=== PATIENT | male | born 1965 | race Caucasian/White ===

== ENCOUNTER 2020-08-09 21:33 | Emergency (ER) | payer SELFPAY ==
[2020-08-09 21:51] VITALS: BP 139/89; PULSE 105; RESP 20; TEMP 36.9; O2SAT 97; BMI 43.4
--- NOTE | 2020-08-09 22:11 | ECG_ITS ---
[facility] Test Date: 2020-08-09 Pat Name: Steve Rodriguez Department: Room: Gender: Male Residential Carpenter: : 1965 Requested By: Stevo Horton Order Number: [id number] Lott MD: Norman Upton M.D. Measurements Intervals [place] Rate: 116 P: MA: QRS: -23 QRSD: 120 T: 56 QT: 345 QTc: 481 Interpretive Statements ATRIAL FIBRILLATION WITH RAPID VENTRICULAR RESPONSE WITH ABERRANT CONDUCTION OR VENTRICULAR PREMATURE COMPLEXES BORDERLINE LEFT AXIS DEVIATION [QRS AXIS < -20] MODERATE INTRAVENTRICULAR CONDUCTION DELAY [110+ ms QRS DURATION] ABNORMAL RHYTHM ECG No previous ECG available for comparison Electronically Signed On 08-11-2020 18:55:09 CDT by Norman Upton M.D. [email or web address]
--- NOTE | 2020-08-09 22:11 | XRR_ITS ---
PROCEDURE INFORMATION: Exam: XR Chest Exam date and time: 08/09/2020 10:14 PM Age: 54 years old Clinical indication: Shortness of breath; Additional info: SOB TECHNIQUE: Imaging protocol: XR of the chest. Views: 1 view. COMPARISON: No relevant prior studies available. FINDINGS: Lungs: Vascular congestion. Mild interstitial opacities in the lung bases. No consolidation. Pleural spaces: Unremarkable. No pleural effusion. No pneumothorax. Heart/Mediastinum: Cardiomegaly. Bones/joints: [place] in the right glenoid. Severe degenerative changes of the right glenohumeral joint. XR/XR chest 1V portable [id number] IMPRESSION: 1. Mild congestive heart failure pattern.
--- NOTE | 2020-08-09 22:16 | ED_ITS ---
HPI - SOB/Dyspnea General: Chief Complaint: Shortness of Breath/Dyspnea Stated Complaint: BLE SWELLING, DIFF BREATHING, WEAK Time Seen by Provider: 08/09/20 22:03 Source: patient Mode of arrival: ambulatory Limitations: no limitations History of Present Illness: HPI Narrative: 54-year-old male states he is here visiting from [place]. He has extensive history including diabetes high blood pressure congestive heart failure and A. fib. He states that his car is broken down has not been able to get back to [place] he is out of all of his medications. He states he has had increasing swelling in his lower extremity along with palpitations from his A. fib. He denies any worsening improving factors. He is tachycardic here. He denies cough or fever. Associated symptoms: Deny abdominal pain, chest pain, fever(s), nausea or vomiting Review of Systems Const: Denies: fever(s), chills, body aches or change in appetite Eyes: Denies: blurry vision or eye discomfort ENMT: Denies: throat pain or dental pain Card: Reports: irregular heart rhythm; Denies: chest pain Resp: Reports: dyspnea GI: Denies: abdominal pain, nausea, vomiting or diarrhea : Denies: dysuria Musc: Denies: neck pain or back pain Skin/Breast: Denies: rash Neuro: Denies: headache(s) Psych: Denies: depression Casey/Lymph: Denies: easy bruising All/Imm: Denies: urticaria Physical Exam Const: COMMON NORMALS: no acute distress and patient oriented x3 NUTRITIONAL APPEARANCE: obese HENMT: COMMON NORMALS: normocephalic and atraumatic HEAD & SCALP: normocep halic and atraumatic Eye: COMMON NORMALS: Equal, round and reactive pupils present and EOMs intact bilaterally PUPIL: Yes Equal, round and reactive pupils present Neck/C-Spine: COMMON NORMALS: full ROM and supple Chest: COMMONS NORMALS: normal inspection of the chest and normal palpation of entire chest wall Resp: COMMON NORMALS: normal respiratory effort, No retractions, No use of accessory muscles and clear to auscultation bilaterally AUSCULTATION: clear to auscultation bilaterally Cardio: COMMON NORMALS: No murmurs present (Cardio) RATE: tachycardic RHYTHM: abnormal rhythm irregularly irregular GI: COMMON NORMALS: Normal to inspection, nondistended, normoactive bowel sounds present, Soft to palpation, non-tender and no masses PALPATION: Yes Soft to palpation Extremity: COMMON NORMALS: full ROM NARRATIVE EXTREMITY EXAM: 2+edema to bilateral ext Neuro: COMMON NORMALS: patient oriented x3, moves all extremities and no focal motor deficits Psych: COMMON NORMALS: mental status grossly normal, Normal thought process present and cooperative THOUGHT PROCESS: Normal thought process present Skin: COMMON NORMALS: no rashes or lesions noted and no wounds GENERAL SKIN EXAM: no rashes or lesions noted Course Vital Signs: Vital signs: Vital Signs Temperature 98.5 F 08/09/20 21:51 Pulse Rate 103 H 08/09/20 23:57 Respiratory Rate 18 08/09/20 23:57 Blood Pressure 135/112 08/09/20 23:57 Pulse Oximetry 94 08/09/20 23:57 MDM - SOB/Dyspnea MDM Narrative: Medical decision making narrative: Patient presents here with lower extremity edema. This is from his CHF and he also has A. fib with RVR. All this is likely due to him being noncompliant on his meds and ran out of his prescription. He I did refill his prescriptions and he has been well-appearing here and his A. fib is improved. He is not require any oxygen here either. He is to follow-up his PCP and return if worsening. He understands agrees to plan. Lab Data: Labs: Lab Results 08/09/20 08/09/20 08/09/20 Range/Units 22:25 22:25 22:25 WBC 8.2 (4.0-10.0) 10^3/ uL RBC 5.11 (4.1-5.3) 10^6/u L Hgb 12.9 (11.7-16.6) g/dL Hct 44.8 (42.0-52.0) % MCV 87.7 (80-94) fL MCH 25.2 L (28.0-34.0) pg MCHC 28.8 L (30.0-36.0) g/dL RDW 18.8 H (12.1-15.1) % Plt Count 215 (130-400) 10^3/c mm MPV 10.1 (7.4-10.4) fL Neut % (Auto) 66.4 % Lymph % (Auto) 19.8 % Edwards % (Auto) 10.5 % Eos % (Auto) 1.7 % Baso % (Auto) 1.1 % Neut # (Auto) 5.42 (1.8-7.7) 10^3/u L Lymph # (Auto) 1.6 (0.8-4.8) 10^3/u L Edwards # (Auto) 0.9 (0.2-0.9) 10^3/u L Eos # (Auto) 0.1 (0.0-0.8) 10^3/u L Baso # (Auto) 0.1 (0.0-0.1) 10^3/u L Nucleated RBC % (a uto) 0 % Nucleated RBCs # 0.0 /100WBC PT Cancelled INR Cancelled Sodium 136 (136-145) mmol/L Potassium 4.3 (3.5-5.1) mmol/L Chloride 102 (98-107) mmol/L Carbon Dioxide 23 (22-29) mmol/L Anion Gap 15.3 (5-19) BUN 24 H (6-20) mg/dL Creatinine 1.0 (0.7-1.2) mg/dL GFR Calculation 78.2 L (90-130) mL/min Glucose 163 H (65-115) mg/dL POC Glucose (70-110) mg/dL Calculated Osmolal ity 290 (285-295) mOsm/k g Calcium 8.4 L (8.5-10.5) mg/dL Total Bilirubin 1.1 (0.15-1.2) mg/dL AST 17 (0-40) U/L ALT 13 (0-41) U/L Alkaline Phosphata se 141 H (40-130) IU/L NT-Pro-B Natriuret Pep 4001 H (0-125) pg/mL Total Protein 7.2 (6.6-8.7) g/dL Albumin 3.7 (3.5-5.2) g/dL Globulin 3.5 (1.3-4.6) g/dL 08/09/20 08/09/20 Range/Units 22:41 23:16 WBC (4.0-10.0) 10^3/ uL RBC (4.1-5.3) 10^6/u L Hgb (11.7-16.6) g/dL Hct (42.0-52.0) % MCV (80-94) fL MCH (28.0-34.0) pg MCHC (30.0-36.0) g/dL RDW (12.1-15.1) % Plt Count (130-400) 10^3/c mm MPV (7.4-10.4) fL Neut % (Auto) % Lymph % (Auto) % Edwards % (Auto) % Eos % (Auto) % Baso % (Auto) % Neut # (Auto) (1.8-7.7) 10^3/u L Lymph # (Auto) (0.8-4.8) 10^3/u L Edwards # (Auto) (0.2-0.9) 10^3/u L Eos # (Auto) (0.0-0.8) 10^3/u L Baso # (Auto) (0.0-0.1) 10^3/u L Nucleated RBC % (a uto) % Nucleated RBCs # /100WBC PT 15.30 H INR 1.18 Sodium (136-145) mmol/L Potassium (3.5-5.1) mmol/L Chloride (98-107) mmol/L Carbon Dioxide (22-29) mmol/L Anion Gap (5-19) BUN (6-20) mg/dL Creatinine (0.7-1.2) mg/dL GFR Calculation (90-130) mL/min Glucose (65-115) mg/dL POC Glucose 155 H (70-110) mg/dL Calculated Osmolal ity (285-295) mOsm/k g Calcium (8.5-10.5) mg/dL Total Bilirubin (0.15-1.2) mg/dL AST (0-40) U/L ALT (0-41) U/L Alkaline Phosphata se (40-130) IU/L NT-Pro-B Natriuret Pep (0-125) pg/mL Total Protein (6.6-8.7) g/dL Albumin (3.5-5.2) g/dL Globulin (1.3-4.6) g/dL Imaging Data^: CXR: Attestation: I personally reviewed and interpreted this imaging study as follows: Radiologist's impression: [address] [address] XRay Report Signed Patient: Steve Rodriguez Unit #: [id number] : 1965 Age/Sex: 54 / M ADM Date: 08/09/20 Loc: ER Room/Bed: Attending Dr: Ordering Provider/Ordering MD: Stevo Horton MD Date of Service: 08/09/20 Procedure(s): XR chest 1V portable [id number] Accession Number(s): [id number] Report Number: [id number] PROCEDURE INFORMATION: Exam: XR Chest Exam date and time: 08/09/2020 10:14 PM Age: 54 years old Clinical indication: Shortness of breath; Additional info: SOB TECHNIQUE: Imaging protocol: XR of the chest. Views: 1 view. COMPARISON: No relevant prior studies available. FINDINGS: Lungs: Vascular congestion. Mild interstitial opacities in the lung bases. No consolidation. Pleural spaces: Unremarkable. No pleural effusion. No pneumothorax. Heart/Mediastinum: Cardiomegaly. Bones/joints: [place] in the right glenoid. Severe degenerative changes of the right glenohumeral joint. XR/XR chest 1V portable [id number] IMPRESSION: 1. Mild congestive heart failure pattern. EKG Data^: EKG 1: Attestation: I personally reviewed and interpreted this EKG as follows: EKG Interpretation Date: 08/09/20 EKG interpretation time: 22:22 Interpretation: afib with rvr hr [address] or t wave abnormalities qrs 120 qtc 414 Discharge Plan Discharge Patient Disposition: Home Clinical Impression: Atrial fibrillation with RVR, CHF exacerbation Condition: Stable Prescriptions: New torsemide 20 mg tablet 20 mg PO DAILY Qty: 30 RF: 0 warfarin 7.5 mg tablet 7.5 mg PO DAILY Qty: 30 RF: 0 digoxin 125 mcg (0.125 mg) tablet 125 mcg PO DAILY Qty: 30 RF: 0 lisinopril 10 mg tablet 10 mg PO DAILY Qty: 30 RF: 0 metformin 1,000 mg tablet 1,000 mg PO BID Qty: 30 RF: 0 spironolactone 50 mg tablet 50 mg PO DAILY Qty: 30 RF: 0 Discharge Orders: Discharge ED (Routine); Ordered 08/09/20 Ordered By: Stevo Horton Discharge Diet: Advance as tolerated Discharge Activity: Resume usual activity Patient Instructions: Heart Failure (ED), Atrial Fibrillation (ED), Leg Edema (ED) Coding Level of Care Code ED Admittance Attendant for [facility] Fwd Exam Comprehensive
[2020-08-09 22:23] VITALS: BP 130/95; PULSE 100; RESP 16; O2SAT 94
[2020-08-09] MEDS: FUROsemide 10 mg/mL SDV 10mL 60 MG IVP (22:24)
[2020-08-09 22:27] LABS: Basophils # 0.1 10^3/uL (0.0-0.1); Basophils % 1.1 %; Eosinophils # 0.1 10^3/uL (0.0-0.8); Eosinophils % 1.7 %; Hematocrit 44.8 % (42.0-52.0); Hemoglobin 12.9 g/dL (11.7-16.6); Lymphocytes # 1.6 10^3/uL (0.8-4.8); Lymphocytes % 19.8 %; Mean Corpuscular HGB Conc 28.8 g/dL (30.0-36.0); Mean Corpuscular Hemoglobin 25.2 pg (28.0-34.0); Mean Corpuscular Volume 87.7 fL (80-94); Mean Platelet Volume 10.1 fL (7.4-10.4); Monocytes # 0.9 10^3/uL (0.2-0.9); Monocytes % 10.5 %; Neutrophils # 5.42 10^3/uL (1.8-7.7); Neutrophils % 66.4 %; Nucleated Red Blood Cells % 0 %; Platelet Count 215 10^3/cmm (130-400); Red Blood Count 5.11 10^6/uL (4.1-5.3); Red Cell Distribution Width 18.8 % (12.1-15.1); White Blood Count 8.2 10^3/uL (4.0-10.0)
[2020-08-09 22:47] LABS: Glucose Point of Care 155 mg/dL (70-110)
[2020-08-09 22:59] VITALS: BP 139/84; PULSE 107; RESP 18; O2SAT 96
[2020-08-09 23:14] LABS: Alanine Aminotransferase 13 U/L (0-41); Albumin Level 3.7 g/dL (3.5-5.2); Alkaline Phosphatase 141 IU/L (40-130); Anion Gap 15.3 (5-19); Aspartate Amino Transferase 17 U/L (0-40); Blood Urea Nitrogen 24 mg/dL (6-20); Calcium 8.4 mg/dL (8.5-10.5); Carbon Dioxide 23 mmol/L (22-29); Chloride 102 mmol/L (98-107); Globulin 3.5 g/dL (1.3-4.6); Glomerular Filtration Rate 78.2 mL/min (90-130); Glucose 163 mg/dL (65-115); NT Pro B Type Natriuretic Pept 4001 pg/mL (0-125); Osmolality Calculated 290 mOsm/kg (285-295); Potassium 4.3 mmol/L (3.5-5.1); Sodium 136 mmol/L (136-145); Total Bilirubin 1.1 mg/dL (0.15-1.2); Total Protein 7.2 g/dL (6.6-8.7)
[2020-08-09 23:31] LABS: INR 1.18 (0.8-1.2)
[2020-08-09 23:33] VITALS: BP 170/112; PULSE 105; RESP 18; O2SAT 96
[2020-08-09 23:57] VITALS: BP 135/112; PULSE 103; RESP 18; O2SAT 94
== END 2020-08-09 23:58 | disposition home or self-care (01) ==
PROVIDERS: Emergency Provider Emergency Medicine
DX: I48.20 Chronic atrial fibrillation, unspecified (principal); I11.0 Hypertensive heart disease with heart failure; I50.9 Heart failure, unspecified; Z79.01 Long term (current) use of anticoagulants; Z79.84 Long term (current) use of oral hypoglycemic drugs; E11.9 Type 2 diabetes mellitus without complications
CPT/HCPCS: 36415; 36416; 71045; 80053; 82962; 83880; 85025; 85610; 93005; 96374; 96375; 99284; J1940; J3490

== ENCOUNTER 2020-09-18 12:47 | Emergency (ER) | payer SELFPAY ==
[2020-09-18 13:51] VITALS: PULSE 108; RESP 16; TEMP 36.8; O2SAT 97; BMI 40.6
--- NOTE | 2020-09-18 14:07 | USR_ITS ---
PROCEDURE INFORMATION: Exam: US Duplex Right Lower Extremity Veins, Limited Exam date and time: 09/18/2020 2:07 PM Age: 54 years old Clinical indication: Pain; Leg, lower; Right; Additional info: Swelling and pain TECHNIQUE: Imaging protocol: Real-time Duplex ultrasound of the Right Lower Extremity with 2-D bell scale, color Doppler flow and spectral waveform analysis with image documentation. Limited exam was focused on the right lower extremity veins. COMPARISON: No relevant prior studies available. FINDINGS: Right deep veins: Unremarkable. The common femoral, femoral, proximal profunda femoral and popliteal veins are patent without thrombus. Normal Doppler waveforms. Normal compressibility and/or augmentation response. Right superficial veins: Unremarkable. Saphenofemoral junction is patent without thrombus. Right calf/foot arteries: Right calf varices noted. Soft tissues: Unremarkable. US/[place] [id number] IMPRESSION: No evidence of deep vein thrombosis.
--- NOTE | 2020-09-18 16:53 | ED_ITS ---
HPI - General Adult General: Chief complaint: General Medical Stated complaint: VARICOSE VEIN BLEEDING Time Seen by Provider: 09/18/20 14:06 Source: patient Mode of arrival: ambulatory Limitations: no limitations History of Present Illness: HPI narrative: 51-year-old male patient presents to the emergency department with a bleedi to right lower leg. Patient states he has had this happen in the past but he is always able to get them stopped. Patient states he does not take any blood thinners. Patient states he does not really have any pain in the leg. Patient states his leg is swollen but that is normal for him. Patient has good sensation. Patient denies fever. Patient denies injury or trauma. Patient denies chest pain or shortness of breath. Associated symptoms: Deny chest pain, confusion, diaphoresis, dyspnea, headache(s), malaise, nausea, rash, palpitations, syncope or vomiting Review of Systems Const: Denies: fever(s), chills, body aches, change in appetite, change in weight, fatigue, malaise or diaphoresis Eyes: Denies: change in vision, blurry vision, blind spots, photophobia, eye discomfort, eye discharge, eye redness, floaters or seeing flashes ENMT: Denies: throat pain, uvular edema, enlarged tonsils, odynophagia, hoarseness, mouth pain, swelling of lips/tongue, bleeding gums, dental pain, dry mouth, ear or mastoid pain, ear discharge, change in hearing, tinnitus, disequil ibrium, nasal discharge, nasal congestion, post nasal drip or sinus pain Card: Reports: swelling of feet/ankles; Denies: chest pain, palpitations, irregular heart rhythm, edema, lightheadedness, syncope, pre-syncope, dyspnea on exertion, orthopnea, leg pain with exertion or acrocyanosis Resp: Denies: dyspnea, productive cough, non-productive cough, wheezing, stri melida, pain on inspiration, change in phlegm color, hemoptysis or chest congestion GI: Denies: abdominal pain, nausea, vomiting, hematemesis, dysphagia, diarrhea, constipation, GI cramping, change in bowel habits or rectal pain : Denies: flank pain, dysuria, urinary frequency, urinary urgency, urinary hesitancy or hematuria Musc: Denies: neck pain, back pain, extremity pain, extremity swelling, joint pain, joint swelling, joint redness, joint warmth or deformity Skin/Breast: Reports: other (Patient has a varicose vein to the right lower leg lateral side that is ble); Denies: rash, pruritus, erythema, sores, new lesions, changes in skin color or dry skin Neuro: Denies: headache(s), numbness in extremities, weakness in extremities, sensory changes, lack of coordination, difficulty walking, frequent falls, dizziness, vertigo, confusion, behavioral changes, Slurred speech present, difficulty communicating thoughts or seizure-like activity Psych: Denies: anxiety, depression, suicidal ideation or homicidal ideation Endo: Denies: polyuria, polydipsia, tired all the time, cold intolerance, excessive sweating, flushing, hot flashes or heat intolerance Casey/Lymph: Denies: easy bruising, easy bleeding, petechiae, purpura, enlarged lymph nodes or tender lymph nodes All/Imm: Denies: urticaria, throat swelling, tongue swelling, facial swelling, acute wheezing or itchy eyes Physical Exam Const: COMMON NORMALS: no acute distress, average body habitus, patient oriented x3, no limitations, healthy appearing, alert and well nourished HENMT: COMMON NORMALS: normocephalic, atraumatic, hearing grossly normal bilaterally, external ears normal, EAC's normal, TM's normal bilaterally, Normal external nose present, Normal nasal mucous membranes and turbinates present, moist oral mucous membranes, oropharynx normal, dentition normal and gingiva normal HEAD & SCALP: normocephalic and atraumatic NOSE: Normal external nose present and Normal nasal mucous membranes and turbinates present EXTERNAL EAR: Yes external ears normal EXTERNAL AUDITORY CANAL: EAC's normal TYMPANIC MEMBRANE: TM's normal bilaterally THROAT: no uvular edema Neck/C-Spine: COMMON NORMALS: no JVD Chest: COMMONS NORMALS: normal inspection of the chest, normal palpation of entire chest wall, normal inspection of the breasts and normal palpation of the breasts Breast/axilla inspection: Yes normal inspection of the breasts BREAST/AXILLA PALPATION: Yes normal palpation of the breasts Resp: COMMON NORMALS: normal respiratory effort, No retractions, No use of accessory muscles, clear to auscultation bilaterally and percussion normal AUSCULTATION: clear to auscultation bilaterally PERCUSSION: percussion normal Cardio: COMMON NORMALS: no JVD, regular rate, regular rhythm, S1 normal heart sound present, S2 normal heart sound present, No gallops present (Cardio), No clicks present (Cardio), No murmurs present (Cardio), No rub (Cardio) and Peripheral pulses 2+ throughout RATE: regular rate RHYTHM: regular rhythm HEART SOUNDS: S1 normal heart sound present and S2 normal heart sound present PERIPHERAL PULSES: Peripheral pulses 2+ throughout Extremity: GENERAL: Yes normal exam except as noted EXTREMITY IMAGE (FRONT): 1. Bleeding varicose vein Neuro: COMMON NORMALS: patient oriented x3 SENSORIUM/ORIENTATION: Yes alert Procedures Laceration Laceration 1: Site: lower extremity Side (If applicable): right Size (cm): 0.5 Description: irregular Depth: simple, single layer Local Anesthetic: lidocaine 1% and with epi Amount of anesthesia used (mL): 2 Skin layer closed with: nylon Size (cm): 5-0 Number of sutures: 2 Subcutaneous layer closed with: other (Figure 8) Size: 5-0 Course Vital Signs: Vital signs: Vital Signs Temperature 98.2 F 09/18/20 13:51 Pulse Rate 108 H 09/18/20 13:51 Respiratory Rate 16 09/18/20 13:51 Pulse Oximetry 97 09/18/20 13:51 MDM - General Adult MDM Narrative: Medical decision making narrative: Patient is well-appearing nontoxic and in no acute distress. 51-year-old male patient presents to the emergency department with a bleedi to right lower leg. Patient states he has had this happen in the past but he is always able to get them stopped. Patient states he does not take any blood thinners. Patient states he does not really have any pain in the leg. Patient states his leg is swollen but that is normal for him. Patient has good sensation. Patient denies fever. Patient denies injury or trauma. Patient denies chest pain or shortness of breath. I did have to use a [id number] suture to stop the bleeding to the varicose vein on the right lower extremity. Given patient's edema to that leg I did ultrasound for a DVT. Ultrasound was negative for any DVTs. I did go ahead and place patient on an antibiotic. I discussed with patient return precautions as well as follow-up and home care. Discharge Plan Discharge Patient Disposition: Home Clinical Impression: Bleeding from varicose veins of right lower extremity Condition: Stable Prescriptions: New cephalexin 500 mg capsule 500 mg PO BID 7 Days Qty: 14 RF: 0 No Action torsemide 20 mg tablet 20 mg PO DAILY Qty: 30 RF: 0 warfarin 7.5 mg tablet 7.5 mg PO DAILY Qty: 30 RF: 0 digoxin 125 mcg (0.125 mg) tablet 125 mcg PO DAILY Qty: 30 RF: 0 lisinopril 10 mg tablet 10 mg PO DAILY Qty: 30 RF: 0 metformin 1,000 mg tablet 1,000 mg PO BID Qty: 30 RF: 0 spironolactone 50 mg tablet 50 mg PO DAILY Qty: 30 RF: 0 Discharge Orders: Discharge ED (Routine); Ordered 09/18/20 Ordered By: Patricia Mejias Discharge Diet: Advance as tolerated Discharge Activity: Increase activity as tolerated Patient Instructions: Acute Wound Care (ED), Opioid Safety Activity Restrictions/Additional Instructions: Please follow up with your PCP for recheck Please return to ER in 5-6 days for suture removal or sooner if You have pus or a foul odor coming from the wound. You have sudden trouble breathing or chest pain. Blood soaks through your bandage. Please take meds as directed Coding Level of Care Code ED Manager [employer]almer Funeral Director for [facility] Ewing
== END 2020-09-18 16:41 | disposition home or self-care (01) ==
PROVIDERS: Emergency Provider Registered Nurse
DX: I83.891 Varicose veins of right lower extremity with other complications (principal); Z79.01 Long term (current) use of anticoagulants; Z79.84 Long term (current) use of oral hypoglycemic drugs
CPT/HCPCS: 12001; 93971; 99282